=== PATIENT | female | born 1990 | race Caucasian/White ===

== ENCOUNTER 2019-01-01 13:28 | Emergency (ER) | payer MEDICAID ==
[~2019-01-01] VITALS: Ht 165.1 cm; Wt 86.2 kg
[2019-01-01 13:40] VITALS: BP 106/73
--- NOTE | 2019-01-01 15:30 | NUR ---
patient ambulated to ER bed 6
--- NOTE | 2019-01-01 15:32 | NUR ---
BIB SELF. AAOX4 C/O FEVER, COUGH WITH YELLOW SPUTUM, SORETHROAT X 3 DAYS. UNABLE TO TAKE OTC MEDS D/T FEAR OF CONTRAINDICATION WITH HER . PT STATES SORETHROAT 06/29. MILD REDNESS ON TONSILS UPON INSPECTION. EQUAL BEN LUNGS CLEAR UPON AUSCULTATION. DENIES SOB. HOB UP. BED SIDE RAILS UP X1. ON LOW BED POSITION, LOCKED. ER MADE AWARE OF PT STATUS.
[2019-01-01] MEDS ORDERED: hydrOXYzine HCL 25 MG TAB PO ONE (16:30)
[2019-01-01] MEDS ORDERED: MECLIZINE 25 MG TAB PO ONE (16:30)
[2019-01-01] MEDS ORDERED: ALBUTEROL SULFATE/IPRATROPIU 3 ML SOL IH ONE (16:30)
[2019-01-01 18:29] VITALS: BP 108/70
--- NOTE | 2019-01-01 18:29 | NUR ---
Patient discharged with v/s stable. Written and verbal after care instructions given and explained. Patient alert, oriented and verbalized understanding of instructions. Ambulatory with steady gait. All questions addressed prior to discharge. ID band removed. Patient advised to follow up with PMD. Rx of Albuterol, Promethazine given. Patient educated on indication of medication including possible reaction and side effects. Opportunity to ask questions provided and answered.
== END 2019-01-01 18:29 | disposition home or self-care (01) ==
LOC: MED 13:28
DX: O99.511 Diseases of the respiratory system complicating pregnancy, first trimester (principal); J02.9 Acute pharyngitis, unspecified; J45.909 Unspecified asthma, uncomplicated; Z3A.10 10 weeks gestation of pregnancy
CPT/HCPCS: 87804; 94640; 99283; J7620; J8597